=== PATIENT | female | born 1945 | race Caucasian/White ===

== ENCOUNTER 2019-01-18 10:39 | Emergency (ER) | payer MEDICARE, OTHER ==
[2019-01-18 10:49] VITALS: BP 135/81
--- NOTE | 2019-01-18 11:31 | UC ---
Hand/Wrist HPI - HPI Summary HPI Summary: 73 yo female presents with LEFT wrist injury. She tells me that just [employer] she slipped on the ice and fell onto her outstretched hands. Now has left wrist pain with obvious deformity. She has not taken anything for the pain. Says that it is "throbbing". Denies numbness or tingling. - History Of Current Complaint Chief Complaint: UCUpperExtremity Stated Complaint: WRIST INJURY Time Seen by Provider: 01/18/19 11:30 Hx Obtained From: Patient Hx Last Menstrual Period: N/A Onset/Duration: Sudden Onset Severity Initially: Moderate Severity Currently: Moderate Pain Intensity: 5 Pain Scale Used: 0-10 Numeric - Allergies/Home Medications Allergies/Adverse Reactions: Allergies Allergy/AdvReac Type Severity Reaction Status Date / Time doxycycline Allergy Rash Verified 01/18/19 10:49 PMH/Surg Hx/FS Hx/Imm Hx - Additional Past Medical History Additional PMH: None Other History Of: Negative For: HIV, Hepatitis B, Hepatitis C, Anticoagulant Therapy - Surgical History Surgical History: Yes Surgery Procedure, Year, and Place: tonsils left eye - Family History Known Family History: Positive: Diabetes - father and paternal grandfather - Social History Occupation: Retired Lives: With Family Alcohol Use: Daily Substance Use Type: None Smoking Status (MU): Former Smoker Review of Systems All Other Systems Reviewed And Are Negative: Yes Constitutional: Positive: Negative Skin: Positive: Negative Respiratory: Positive: Negative Cardiovascular: Positive: Negative Neurovascular: Positive: Negative Musculoskeletal: Positive: Other: - Left wrist pain Neurological: Positive: Negative Physical Exam - Summary Physical Exam Summary: GENERAL: NAD. WDWN. No pain distress. SKIN: No rashes, sores, lesions, or open wounds. CHEST: No accessory muscle use. Breathing comfortably and in no distress. CV: Pulses intact radial and ulnar. Cap refill <2seconds MSK: LEFT WRIST: Obvious angular deformity. TTP about whole wrist. Able to move all fingers and make a fist. NEURO: Alert. Sensations intact hand and all fingers. PSYCH: Age appropriate behavior. Triage Information Reviewed: Yes Vital Signs: Initial Vital Signs Temp 98 F 01/18/19 10:46 Pulse 80 01/18/19 10:46 Resp 20 01/18/19 10:46 BP 135/81 01/18/19 10:46 Pulse Ox 100 01/18/19 10:46 Vital Signs Reviewed: Yes Hand/Wrist Course/Dx - Course Course Of Treatment: XR: IMPRESSION: TRANSVERSE, COMMINUTED, DISPLACED, ANGULATED FRACTURE OF THE DISTAL RADIUS. I called Orthopedics and they will see pt in their office now. Pt was placed in a cock-up brace for protection and advised to have her with her today drive her across the parking lot to the Orthopedic office for further eval and treatment. - Differential Dx/Diagnosis Provider Diagnosis: Fracture of left wrist Discharge - Sign-Out/Discharge Documenting (check all that apply): Patient Departure All imaging exams completed and their final reports reviewed: Yes - Discharge Plan Condition: Stable Disposition: HOME Referrals: Young Pike MD [Medical Doctor] - As Soon As Possible Shy Viramontes MD [Primary Care Provider] - Additional Instructions: Please go directly to Orthopedics at the number below - they are expecting you - Billing Disposition and Condition Condition: STABLE Disposition: Home
== END 2019-01-18 11:50 | disposition home or self-care (01) ==
LOC: UCEAST 10:39
DX: S52.592A Other fractures of lower end of left radius, initial encounter for closed fracture (principal); Z87.891 Personal history of nicotine dependence; Z88.1 Allergy status to other antibiotic agents; W00.0XXA Fall on same level due to ice and snow, initial encounter; Y92.9 Unspecified place or not applicable
CPT/HCPCS: 99212; G0463